=== PATIENT | male | born 1960 | race Caucasian/White ===

== ENCOUNTER 2018-04-26 06:56 | Day surgery (SDC) | payer OTHER ==
[~2018-04-26] VITALS: Ht 162.6 cm; Wt 78.9 kg
[2018-04-26] MEDS ORDERED: FAMO-90 PO (08:06)
[2018-04-26] MEDS ORDERED: METO50TE2 PO (08:06)
[2018-04-26] MEDS ORDERED: KETOROLAC 30 MG/ML VIAL ONE (08:38)
[2018-04-26] MEDS ORDERED: LIDOCAINE 2% 100 MG/5 ML UJET TP ONE (08:38)
== END 2018-04-26 10:05 | disposition home or self-care (01) ==
LOC: MDS 06:56 → MMU 07:00 → MDS 10:05
PROVIDERS: ATTEND Internal Medicine Gastroenterology
DX: Z12.11 Encounter for screening for malignant neoplasm of colon (principal); D12.4 Benign neoplasm of descending colon; K57.30 Diverticulosis of large intestine without perforation or abscess without bleeding; I10 Essential (primary) hypertension; J45.909 Unspecified asthma, uncomplicated; E66.9 Obesity, unspecified; K21.9 Gastro-esophageal reflux disease without esophagitis; Z72.89 Other problems related to lifestyle; Z88.5 Allergy status to narcotic agent; Z79.899 Other long term (current) drug therapy; Z68.29 Body mass index [BMI] 29.0-29.9, adult; Z90.49 Acquired absence of other specified parts of digestive tract
CPT/HCPCS: 45385; J1885

== ENCOUNTER 2019-06-09 08:42 | Emergency (ER) | payer OTHER ==
[~2019-06-09] VITALS: Ht 162.6 cm; Wt 79.4 kg
[~2019-06-09 08:42] MED LIST: FAMO-90 PO; METO50TE2 PO
[2019-06-09 08:46] VITALS: BP 135/99
[2019-06-09] MEDS ORDERED: KETOROLAC 30 MG/ML VIAL IVP ONE (09:05)
[2019-06-09 09:20] LABS: HEMATOCRIT 40.8 % (36-52); HEMOGLOBIN 14.1 g/dL (12.0-18.0); MEAN CORPUSCULAR HEMOGLOBIN 34 pg (27-31); MEAN CORPUSCULAR HGB CONC 35 g/dL (33-37); MEAN CORPUSCULAR VOLUME 98.3 fL (80-94); RED BLOOD CELL COUNT(AUTO) 4.15 MIL/uL (4.20-6.10); RED CELL DISTRIBUTION WIDTH 13.5 % (11.6-13.7)
[2019-06-09 09:21] LABS: APPEARANCE,URINE CLEAR (CLEAR); BILIRUBIN,URINE 1+ (NEGATIVE); BLOOD, URINE NEGATIVE (NEGATIVE); COLOR,URINE YELLOW (YELLOW); LEUKOCYTE ESTERASE ,URINE NEGATIVE (NEGATIVE); NITRITE, URINE NEGATIVE (NEGATIVE); PH,URINE 6.5 (5.0-9.0); UGLUCOSE NEGATIVE (NEGATIVE)
[2019-06-09 09:38] LABS: ANION GAP 15.6 (8-16); CARBON DIOXIDE 22.5 mmol/L (21-32); CREATININE 1.1 mg/dL (0.6-1.3); POTASSIUM 3.1 mmol/L (3.5-5.1)
[2019-06-09 09:39] LABS: WHITE BLOOD COUNT (AUTO) 27.1 K/uL (4.8-10.8)
[2019-06-09] MEDS ORDERED: NACL 0.9% 1,000 ML IV ONE ×2 (09:40→10:10)
[2019-06-09 09:44] LABS: ALBUMIN 2.3 g/dL (3.4-5.0); TOTAL BILIRUBIN 2.1 mg/dL (0.0-1.0)
[2019-06-09] MEDS ORDERED: PIPERACILLIN/TAZOBACTAM 2.25 GM in DEXTROSE 5% 50 ML IV ONE (10:10)
[2019-06-09] MEDS ORDERED: PIPERACILLIN/TAZOBACTAM 2.25 GM VIAL IV ONE (10:11)
[2019-06-09 10:12] LABS: PLATELET COUNT (AUTO) 369 K/uL (140-450)
[2019-06-09 10:13] LABS: BASOPHILS % (MANUAL) 0 % (0-2); EOSINOPHILS % (MANUAL) 0 % (0-4); LYMPHOCYTES % (MANUAL) 9 % (20-46); MONOCYTES % (MANUAL) 6 % (5-12)
[2019-06-09] MEDS ORDERED: ATEN50TA8 PO (10:42)
[2019-06-09] MEDS ORDERED: OMEP20TC12 PO (10:42)
[2019-06-09] MEDS ORDERED: NACL 0.9% 1,000 ML IV SCH ×2 (10:47→13:10)
[2019-06-09] MEDS ORDERED: ONDANSETRON 4 MG/2 ML VIAL IVP PRN (10:50)
[2019-06-09] MEDS ORDERED: MORPHINE SULFATE 2 MG/ML SYR IVP PRN (10:50)
[2019-06-09] MEDS ORDERED: ORE25 PO (10:56)
[2019-06-09] MEDS ORDERED: MORPHINE SULFATE 4 MG/ML SYR IVP ONE (13:10)
[2019-06-09 13:45] VITALS: BP 157/97
[2019-06-09] MEDS ORDERED: PIPERACILLIN/TAZOBACTAM 3.375 GM in DEXTROSE 5% 50 ML IV SCH (21:00)
[2019-06-10] MEDS ORDERED: ENOXAPARIN 40 MG/0.4 ML SYR SUBQ SCH (09:00)
== END 2019-06-09 13:40 | disposition short-term general hospital (02) ==
LOC: MED 08:42 → MTU 10:47 → UNDOADMIN 10:47 → MED 13:40
DX: K81.0 Acute cholecystitis (principal); E87.6 Hypokalemia; R74.0 Nonspecific elevation of levels of transaminase and lactic acid dehydrogenase [LDH]; Z90.49 Acquired absence of other specified parts of digestive tract; Z79.899 Other long term (current) drug therapy; Z88.5 Allergy status to narcotic agent
CPT/HCPCS: 36415; 74176; 76705; 80053; 81003; 83605; 83690; 85025; 87040; 87086; 96361; 96365; 96375; 99285; J1885; J2270; J2543; J7030; Q0092; 81025; J7060

== ENCOUNTER 2019-07-27 22:57 | Emergency (ER) | payer OTHER ==
[~2019-07-27] VITALS: Ht 162.6 cm; Wt 77.1 kg
[~2019-07-27 22:57] MED LIST changes: +ATEN50TA8 PO; -FAMO-90 PO; -METO50TE2 PO; +OMEP20TC12 PO; +ORE25 PO
--- NOTE | 2019-07-27 22:57 | NUR ---
PT KEMI CURRY. TAKEN TO BED 11
[2019-07-27 23:04] VITALS: BP 156/95
--- NOTE | 2019-07-27 23:12 | NUR ---
BIBA ALS FROM HOME C/O ETOH AND POSSIBLE SYNCOPE. -LOC, +N/V, -BLURRY VISION PT PLACED ON MILLING [employer] AND NS BOLUS THRU IV. NEGATIVE FOR COVID SCREENING. PMHX: HTN, CHOLECYSTECTOMY ALLX: CODEINE.
[2019-07-27] MEDS ORDERED: NACL 0.9% 1,000 ML IV ONE (23:20)
--- NOTE | 2019-07-27 23:28 | NUR ---
XRAY AT BEDSIDE
[2019-07-27 23:32] LABS: BASOPHILS # (AUTO) 0.1 K/uL (0.00-0.22); BASOPHILS % (AUTO) 0.9 % (0.0-2.0); EOSINOPHILS # (AUTO) 0.1 K/uL (0-0.4); EOSINOPHILS % (AUTO) 0.9 % (0.0-4.0); HEMATOCRIT 43.4 % (36-52); HEMOGLOBIN 14.5 g/dL (12.0-18.0); LYMPHOCYTES # (AUTO) 7.9 K/uL (2.0-11.5); MEAN CORPUSCULAR HEMOGLOBIN 33 pg (27-31); MEAN CORPUSCULAR HGB CONC 33 g/dL (33-37); MEAN CORPUSCULAR VOLUME 98.2 fL (80-94); MONOCYTES # (AUTO) 0.4 K/uL (0.8-1.0); NEUTROPHILS # (AUTO) 2.6 K/uL (1.8-7.7); NEUTROPHILS % (AUTO) 23.5 % (42.2-75.2); PLATELET COUNT (AUTO) 381 K/uL (140-450); RED BLOOD CELL COUNT(AUTO) 4.42 MIL/uL (4.20-6.10); RED CELL DISTRIBUTION WIDTH 13.3 % (11.6-13.7); WHITE BLOOD COUNT (AUTO) 11.1 K/uL (4.8-10.8)
[2019-07-27 23:45] LABS: LYMPHOCYTES % (AUTO) 70.7 % (20.5-51.1)
[2019-07-27 23:46] LABS: ALBUMIN 3.8 g/dL (3.4-5.0); ANION GAP 15.2 (8-16); CARBON DIOXIDE 24.1 mmol/L (21-32); POTASSIUM 3.3 mmol/L (3.5-5.1); TOTAL BILIRUBIN 0.5 mg/dL (0.0-1.0)
[2019-07-27 23:57] LABS: CREATINE KINASE MB 3.4 ng/mL (0-3.6)
--- NOTE | 2019-07-27 23:57 | NUR ---
59M BIBA ALS FROM HOME C/O ETOH AND POSSIBLE SYNCOPE. NEGATIVE FOR COVID SCREENING. PMHX: HTN, CHOLECYSTECTOMY ALLX: CODEINE.
--- NOTE | 2019-07-28 02:01 | NUR ---
PT IN BED SLEEPING. VISIBLE CHEST RISE AND FALL.AROUSABLE TO VOICE. NO FURTHER NEEDS AT THIS TIME. BED LOWEST AND LOCKED, RAILS X2
[2019-07-28 03:29] VITALS: BP 126/81
--- NOTE | 2019-07-28 03:29 | NUR ---
Patient discharged with v/s stable. Written and verbal after care instructions given and explained. Patient verbalized understanding. Ambulatory with steady gait. All questions addressed prior to discharge. Advised to follow up with PMD.
== END 2019-07-28 03:29 | disposition home or self-care (01) ==
LOC: MED 22:57
DX: F10.129 Alcohol abuse with intoxication, unspecified (principal); K21.9 Gastro-esophageal reflux disease without esophagitis; Z90.49 Acquired absence of other specified parts of digestive tract; Z88.6 Allergy status to analgesic agent; Z79.899 Other long term (current) drug therapy
CPT/HCPCS: 36415; 71045; 80053; 82550; 82553; 83690; 84484; 85025; 93005; 96360; 99285; G0482; J7030; Q0092